=== PATIENT | male | born 1965 | race African-American/Black ===

== ENCOUNTER 2018-10-09 10:01 | Emergency (ER) | payer OTHER ==
[~2018-10-09] VITALS: Ht 170.2 cm; Wt 106.6 kg
[2018-10-09] MEDS ORDERED: NORVASC10 MG ORAL (10:08)
[2018-10-09] MEDS ORDERED: OXYCODONE HCL15 M1 ORAL (10:08)
[2018-10-09] MEDS ORDERED: CARISOPRODOL250 MG ORAL (10:08)
[2018-10-09] MEDS ORDERED: GLUCOPHAGE1000 MG ORAL (10:08)
[2018-10-09] MEDS ORDERED: NORCO 10-325 T1 EACH ORAL (10:08)
--- NOTE | 2018-10-09 12:28 | Emergency Room Report ---
History of Present Illness General Chief Complaint: Back Pain-No Injury Source: Patient Present Illness HPI 53-year-old male patient presents ER complaining of chronic back pain for the past "few years". Reports history of spinal stenosis. Reports went to his doctor across the street however he was not in the office so the office number sent into the ER to get a refill of his pain medications. Reports he has a follow-up appointment scheduled for Sunday this week. Denies recent injury or trauma. Denies bowel or bladder incontinence. Denies fever. Denies history of cancer. Denies history of kidney stones. Denies dysuria, hematuria. Denies fever. Denies chest pain, shortness of breath, abdominal pain. Reports normally takes Soma and [place], requesting refills of those medications at this time. Allergies: Coded Allergies: No Known Allergies (Unverified , 10/09/18) Patient History Past Medical History: see triage record Reviewed Nursing Documentation: PMH: Agreed; PSxH: Agreed Nursing Documentation-PMH Hx Hypertension: Yes Hx Asthma: Yes Hx Diabetes: Yes Review of Systems All Other Systems: negative except mentioned in HPI Physical Exam Vital Signs Date Time Temp Pulse Resp B/P (MAP) Pulse Ox O2 Delivery O2 Flow Rate FiO2 10/09/18 10:01 97.7 79 20 152/97 100 Room Air Sp02 EP Interpretation: reviewed, normal General Appearance: well appearing, no apparent distress, alert, GCS 15, non- toxic Head: normocephalic, atraumatic ENT: hearing grossly normal, normal pharynx, no angioedema, normal voice, uvula midline, moist mucus membranes Neck: full range of motion Respiratory: lungs clear, normal breath sounds, no rhonchi, no respiratory distress, no accessory muscle use, no wheezing, speaking full sentences Cardiovascular #1: regular rate, rhythm, no edema Gastrointestinal: non tender, soft, no mass, non-distended, no guarding, no pulsatile mass, no rebound Musculoskeletal: back normal, digits/nails normal, gait/station normal, normal range of motion, non-tender Neurologic: alert, oriented x3, responsive, motor strength/tone normal, sensory intact Psychiatric: mood/affect normal Skin: no rash Medical Decision Making PA Attestation Dr. Landon is my supervising Physician whom patient management has been discussed with. Diagnostic Impression: Primary Impression: Chronic back pain Additional Impression: History of spinal stenosis ER Course Pt. presents to the ED requesting prescription refill for chronic pain medication. DDX considered but are not limited to sprain, strain, cauda equina, epidural abscess, AAA, spinal cord compression, kidney stones, opioid dependence. Low suspicion for cauda equina, no bowel or bladder incontinence or retention. No fever, nontoxic appearing, no radiation of pain, low suspicion for epidural mass. No abdominal pain, no blood pressure elevation, nontoxic appearing, low suspicion for AAA. Vital signs: are WNL, pt. is afebrile ORDERS: PE benign. Denies acute injury or trauma, does not require imaging at this time. likely acute exacerbation of chronic pain. Informed patient would not provide refill of opioid pain or Soma medication. Informed patient can provide him in the ER with lidocaine patch, Tylenol, muscle relaxant however patient declined. States he will "go to another hospital " if we won't give him the refills. Will not provide refill of medication. Advised patient on risk of addiction potential. Contact primary care provider for further treatment. Followup with pain management. Informed patient ER cannot provide refills in the future; followup, management and prescription of long-term medications must be performed by primary care provider. ER precautions given. DISCHARGE: No Rx provided at this time. At this time pt is stable for d/c to home. Patient is resting comfortably, in no acute distress, nontoxic appearing, talking without difficulty. Patient to take medications as instructed Will provide with patient care instructions and any necessary prescriptions. Care plan and follow-up instructions provided. Patient instructed to follow-up with primary care provider in 3 - 5 days. Patient questions asked and answered. Patient reports understanding and agreement to treatment plan. ER precautions given. Patient instructed to return to ER immediately for any new or worsening of symptoms including but not limited to increasing SOB, persistent fever. - Please note that this Emergency Department Report was dictated using [employer] supervisor technology software, occasionally this can lead to erroneous entry secondary to interpretation by the dictation equipment. Last Vital Signs Date Time Temp Pulse Resp B/P (MAP) Pulse Ox O2 Delivery O2 Flow Rate FiO2 10/09/18 10:01 97.7 79 20 152/97 100 Room Air Disposition: HOME, SELF-CARE Condition: Stable Scripts Lidocaine (Lidocaine) 1 Each Adh..patch 5 % TP DAILY for 7 Days, #7 PATCH Prov: Haile Galarza 10/09/18 Acetaminophen* (TYLENOL EXTRA STRENGTH*) 500 Mg Tablet 500 MG ORAL Q8H PRN for Prn Headache/Temp > 101, #30 TAB 0 Refills Prov: Haile Galarza 10/09/18 Referrals: NON PHYSICIAN (PCP) Patient Instructions: Back Pain, Adult, Spinal Stenosis Additional Instructions: Patient instructed to follow up with primary care provider 1-2 days and discuss further referral and imaging at that time. Follow-up with face painter. Patient instructed on rest, ice and heat. Do not take muscle relaxant prior to drinking, driving, or operating heavy machinery. Take medications as directed. Patient questions asked and answered. ER precautions given, patient instructed to return to ER immediately for any new or worsening of symptoms. Haile Galarza Oct 09, 2018 12:28
[2018-10-09] MEDS ORDERED: LIDOCAINE700 M1 TP (12:29)
[2018-10-09] MEDS ORDERED: TYLENOL EXTRA500 MG ORAL (12:29)
[2018-10-09 12:38] VITALS: BP 145/89
== END 2018-10-09 12:38 | disposition home or self-care (01) ==
LOC: EMR 11:20
DX: M54.9 Dorsalgia, unspecified (principal); G89.29 Other chronic pain; Z76.0 Encounter for issue of repeat prescription; I10 Essential (primary) hypertension; E11.9 Type 2 diabetes mellitus without complications; J45.909 Unspecified asthma, uncomplicated
CPT/HCPCS: 99282